=== PATIENT | female | born 1965 | race Caucasian/White ===

== ENCOUNTER 2017-08-19 00:56 | Emergency (ER) | payer OTHER, SELFPAY ==
[2017-08-19 00:56] VITALS: BP 136/104; PULSE 95; RESP 20; TEMP 36.7; O2SAT 95; BMI 53.2
--- NOTE | 2017-08-19 01:32 | US_ITS ---
STUDY: ABDOMINAL ULTRASOUND - RIGHT UPPER QUADRANT REASON FOR VISIT: Female, 52 years old. Upper abdominal pain especially after meals TECHNIQUE: Ultrasound evaluation of the right upper quadrant was performed with real-time and static turner-scale imaging. TECHNICAL QUALITY: Adequate. COMPARISON: None. FINDINGS: Liver: The liver measures 16.6 cm. There is normal echogenicity of the liver. The bile ducts are within normal limits. There is hepatic color flow. The direction of portal flow is hepatopetal. There is no demonstrated mass lesion. Gallbladder: Normal distended gallbladder. The gallbladder wall measures 3 mm. There is a negative sonographic Ojeda's sign. There is no pericholecystic fluid. There is a 1.8 cm gallstone and a small 6 mm polyp Common Bile Duct (C.B.D.): The common bile duct measures 5 mm. Pancreas: Normal size of the head, body and tail of the pancreas. There is normal echogenicity of the pancreas. There is no demonstrated pancreatic mass or cyst. Right Kidney: Normal size of the right kidney. The right kidney measures 10.2 x 4.8 x 4.8 cm. Normal renal cortex. The right cortex measures 1.5 cm. There is no demonstrated renal mass or cyst. There is no right hydronephrosis. US/Gallbladder IMPRESSION: A 1.8 cm gallstone and a 6 mm polyp in the gallbladder Electronically Signed: Abimael Rodrigues, at 3:17 EDT Tel , Service support ,
[2017-08-19] MEDS: Acetaminophen 500 MG Tablet 1000 MG PO (01:55)
[2017-08-19] MEDS: 0.9% Normal Saline 1,000 ML 125 ML IV (01:55)
[2017-08-19 02:05] LABS: Mucous, Urine 0 SEEN /hpf (<or=2+); Red Blood Cells-Urine 0 SEEN /hpf (0-5); White Blood Cells 0 SEEN /hpf (0-5)
[2017-08-19 02:10] LABS: Color, Urine Yellow (Yellow); Glucose, Dipstick Normal (Normal); Ketone-Dipstick 5 mg/dl (Negative); Leukocyte Esterase-Dipstick 25 /ul (Negative); Nitrite-Dipstick Negative (Negative); Occult Blood-Urine 10 /ul (Negative); Protein-Dipstick 30 mg/dl (Negative); Specific Gravity, Urine 1.025 (1.002-1.030); Urine Clarity Clear (Clear); Urine Urobilinogen 1 mg/dl (Normal)
[2017-08-19 02:11] LABS: Absolute Lymphocyte Count 2.19 X10^3/ul (0.83-4.51); Absolute Neutrophil Count 6.4 X10^3/uL (2.0-7.7); Basophil# 0.02 X10^3/uL; Basophil% 0.2 % (0-1); Eosinophil# 0.11 X10^3/uL; Eosinophils% 1.2 % (0-5); Hemoglobin 11.6 g/dl (12.0-15.0); Lymphocyte # 2.19 X10^3/ul (4.0); Lymphocyte % 23.8 % (19-41); Mean Corp Hgb Conc 32.2 g/gl (32-36); Mean Corpuscular Hgb 28.9 pg (27.0-32.0); Mean Corpuscular Volume 89.8 fL (81-99); Mean Platelet Vol. 11.1 fl (6.2-12.0); Monocyte# 0.44 X10^3/uL; Monocyte% 4.8 % (0-10); Neutrophil # 6.42 X10^3/uL (2.7-7.7); Neutrophil % 69.8 % (47-70); Platelet Count 274 K/mm3 (150-450); RBC Distribution Width CV 13.4 % (11.6-14.6); RBC Distribution Width SD 43.4 fl (35.1-43.9); Red Blood Count 4.01 M/mm3 (4.2-5.4); White Blood Count 9.2 K/mm3 (4.4-11.0)
[2017-08-19 02:17] LABS: Urine Bilirubin Dipstick 1 mg/dL (Negative)
[2017-08-19 02:22] LABS: Bacteria 2+ /hpf (None Seen); Squamous Epithelial Cells - UA 0-5 SEEN /hpf (5-10)
[2017-08-19 02:23] LABS: POSITIVE COUNT NO; POSITIVE DIFFERENTIAL NO; POSITIVE MORPHOLOGY NO
[2017-08-19 02:24] LABS: ALB/GLOB Ratio 0.8 RATIO (0.9-2.4); AST(SGOT) 20 U/L (15-37); Alanine Aminotransfer ALT/SGPT 38 U/L (13-56); Albumin, Serum 3.4 g/dL (3.2-5.0); Alkaline Phosphatase 140 U/L (45-117); Anion Gap 8 (5-15); BUN 14 mg/dL (7-18); BUN/Creat Ratio 18.3 RATIO (10-20); Calcium,Total 9.4 mg/dL (8.5-10.1); Chloride 105 mmol/L (98-107); Creatinine, Serum 0.77 mg/dL (0.55-1.02); EST Glomerular Filtration Rate 84 mL/min (>60); Est Glom Filt Rate - Afr Amer 101 mL/min (>60); Estimated Creatinine Clearance 72.12 ml/min; Globulin 4.2 g/dL (2.2-4.2); Glucose 107 mg/dL (74-106); Lipase 143 U/L (73-393); Potassium 3.6 mmol/L (3.5-5.1); Protein, Total 7.6 g/dL (6.4-8.2); Sodium Level 140 mmol/L (136-145)
[2017-08-19 03:51] VITALS: PULSE 88; RESP 18; O2SAT 98
[2017-08-19] MEDS: oxyCODONE 5 MG Tablet PO (03:56)
[2017-08-19] MEDS: Ondansetron ODT 4 MG Tablet PO (03:57)
--- NOTE | 2017-08-19 04:42 | ED.DCSUM_ITS ---
- ER Visit Summary Date of Service: 08/19/17 Chief Complaint: Abdominal pain History of Present Illness: The patient is a 52 F with bilateral upper quadrant abdominal pain radiating to the back. Worse this evening after eating a cheeseburger. No other associated symptoms. No history of this. Physical Examination: Vitals unremarkable. Upper abdomen slightly tender to palpation. Negative Ojeda sign. No guarding or rebound. CVAs nontender. Skin appears normal without jaundice. Test Results: White count 11.6. CMP unremarkable except for an alk phos of 140. Lipase normal. Urinalysis unremarkable. Ultrasound shows a 1.8 cm gallstone with a 6 mm polyp. No sonographic Ojeda sign. No pericholecystic fluid. No thickening or dilation. Emergency Department Course and Treatment: Patient presents with biliary colic. She was treated initially with Tylenol. She requested something more for pain and was treated with oxycodone. This seemed to keep her pain under control. She also had Zofran and this helped. Patient would like to follow-up as an outpatient. I believe she will need surgery for this. A family member has seen . Dr. Warner is on-call. I will get her the number for both of these physicians and she should call in the morning. She will receive a short course of Percocet and Zofran. Her prescription database report was unremarkable. Return for any new or worsening symptoms she could develop comp occasions like pancreatitis or an infection and require hospitalization. Treatment Plan: As above Disposition: Discharged Impression: 1. Biliary Colic This note was generated with [employer] dictation software. It may contain incorrect words, spelling, and punctuation that were not noted in review of the chart prior to signing ED Disposition - Plan for ED Patient: Chief Complaint: Abd Pain Referrals: Care Physician,No Primary [Primary Care Provider] -
--- NOTE | 2017-08-19 04:45 | ED.DEP ---
ED Disposition - Plan for ED Patient: Chief Complaint: Abd Pain Instructions: Discharge Instructions for Gallstones Prescriptions: Oxycodone HCl/Acetaminophen [Percocet 5/325] 1 tab PO Q6H PRN PRN 3 Days #12 tab PRN Reason: Pain Ondansetron [Zofran Odt] 4 mg PO Q8H PRN PRN #10 tab PRN Reason: Nausea Referrals: Earnest Galan MD [STAFF PHYSICIAN] - Ute Warner MD [STAFF PHYSICIAN] -
[2017-08-19 05:03] VITALS: BP 128/56; PULSE 69; RESP 16; O2SAT 98
== END 2017-08-19 05:03 | disposition home or self-care (01) ==
PROVIDERS: Emergency Provider Emergency Medicine
DX: K80.70 Calculus of gallbladder and bile duct without cholecystitis without obstruction (principal); K82.4 Cholesterolosis of gallbladder
CPT/HCPCS: 76705; 80053; 81001; 83690; 85025; 96360; 96361; 99284; J7030; J7050; A4216

== ENCOUNTER 2017-10-07 05:40 | Day surgery (SDC) | payer OTHER, SELFPAY ==
[2017-10-07] VITALS (10 sets, daily range): BP systolic 114–154; BP diastolic 60–104; PULSE 40–74; RESP 16–18; TEMP 36.2–37.1; O2SAT 95–100; BMI 50.4
--- NOTE | 2017-10-07 05:54 | EKG12_ITS ---
Test Reason : PRE-OP Blood Pressure : / mmHG Vent. Rate : 073 BPM Atrial Rate : 073 BPM P-R Int : 158 ms QRS Dur : 092 ms QT Int : 398 ms P-R-T Axes : 030 050 038 degrees QTc Int : 438 ms Normal sinus rhythm Normal ECG No previous ECGs available Confirmed by MADDI ROSARIO, JAE ([id number]), food expeditor LAURA GALVEZ ([id number]) on 10/08/2017 9:47:35 AM Referred By: Earnest Galan Confirmed By:JAE LINDA MD
[2017-10-07 06:08] LABS: Internal QC Validated? YES +Cl - CLEAR BKGD; Pregnancy, Urine Negative Negative
[2017-10-07] MEDS: Cefazolin 2 GM in 0.9% Normal Saline 100 ML IV (07:10)
--- NOTE | 2017-10-07 07:15 | RAD_ITS ---
STUDY: INTRAOPERATIVE CHOLANGIOGRAM. REASON FOR EXAM: Female, 52 years old. Laparoscopic cholecystectomy. FLUOROSCOPY TIME (if supplied): (0:12) minutes/seconds TECHNIQUE: And intraoperative cholangiogram was performed by the surgeon. Imaging was submitted. COMPARISON: None. FINDINGS: Contrast was injected through the cystic duct. The visualized intrahepatic ducts are unremarkable. The common bile duct is not dilated. No intraluminal filling defect is seen. There is free flow of contrast into the duodenum. RAD/Cholangiogram/ O R,Initial IMPRESSION: Unremarkable intraoperative glandular. Electronically Signed: Darryl Yepez MD at 10:14 EDT Tel [phone], Service support ,
--- NOTE | 2017-10-07 07:15 | GALL_PTH ---
PATIENT: KIRSTIN VAZQUEZ LOC: [facility] U#:[id number] AGE/SX: 52/F ROOM: RE10/07/[address]: Dr. Earnest Galan MD : [id number] BED: DIS: 10/07/2017 SPEC #: [id number] RECD: 10/08/17 07:16 STATUS: BO WOODROW #: [id number] KIMMY: 10/07/17 07:[address]: Earnest Galan DEPT: SURGICAL PATHOLOGY RECD BY: Zander Jordan ENTERED: 10/08/17 10:59 SP TYPE: BEBETO LOPEZ DR: No Primary Care Phys Tissues: Gallbladder, NOS Procedures: Surgery Specimen Level III HEADER OPERATION: Laparoscopic, nicole with IOC PRE-OP DIAGNOSIS: Cholelithiasis TISSUE SUBMITTED: Gallbladder MICROSCOPIC DIAGNOSIS Gallbladder: Chronic cholecystitis, cholelithiasis and cholesterolosis. Pericystic benign lymph node with reactive changes. SJ:maribell 10/09/17 MICROSCOPIC DESCRIPTION Slides are reviewed. GROSS DESCRIPTION Received is one container labeled with the patient's name and designated gallbladder. The specimen consists of a gallbladder measuring 9 cm in length and up to 3.5 cm in diameter. The external surface is pink-khoury, smooth and glistening for the most part. Focally it is granular, hemorrhagic and contains cautery artifact. The gallbladder contains green-yellow mucoid bile and 1 greenish mulberry stone measuring 0.9 cm x 0.9 x 0.8 cm. The mucosa is bile-stained and without any mass lesions. The gallbladder wall measures up to 0.4 cm in thickness. Focally, there is increased amount of subserosa and fat. The mucosa also shows several yellowish streaks consistent with cholesterolosis. Network Support Administrator sections from the gallbladder and the cystic duct are submitted in one cassette. / SJ:sp 10/07/17 TC:3 CPT: 83312
[2017-10-07] MEDS: Bupivacaine Mpf 0.5% 30 ML VIAL (07:38)
--- NOTE | 2017-10-07 08:26 | PCM.OPRPT ---
Report of Operation Date of Procedure: 10/07/17 Pre-Operative Diagnosis: BILIARY COLIC Post-Operative Diagnosis: BILIARY COLIC, NORMAL IOC Surgery/Procedure Performed:: LAPAROSCOPIC CHOLECYSTECTOMY WITH INTRAOPERATIVE CHOLANGIOGRAM lead android developer: Tyrone Mosquera Type of Anesthesia:: General Anesthesiologist: Micheal Norris - ASA3 Specimen's removed: Gallbladder Estimated Blood Loss (mL): minimal Fluids Replaced: 1000 Description of Procedure: The patient was brought to the operating suite. Sign in was performed verifying patient, site, position, SCIP antibiotic prophylaxis- 3 gm of Ancef and DVT prophylaxis with SCDs. Following induction of general anesthetic. The patients abdomen was prepped and draped in the usual fashion. Timeout was performed verifying patient, site, position. Local anesthetic was injected below the umbilicus. Incision made and dissection carried down to the umbilical root fascia. 2 stay sutures were placed. Incision made in the fascia, the peritoneum entered under direct visualization. A 10 mm Raymond trocar was inserted and secured with the stay sutures. Pneumoperitoneum to 15 mmHg was insufflated. Visual inspection revealed demonstrated liver, otherwise normal visualized abdominal structures. 3 right upper quadrant 5 ports were placed in the standard position. The gallbladder was grasped retracted upward and outward. Dissection was carried out in Calots triangle. When a critical view of the neck of the gallbladder funneling of the cystic duct with no signs of aberrant ductal structures were seen, a clip was placed on the neck of the gallbladder cystic duct junction. A partial ductotomy was made. A Cholangiocath was inserted into the duct and secured with a clip. Intraoperative cholangiogram was performed demonstrating filling of the cystic duct filling the common bile duct and emptying into the duodenum without signs of obstruction area and the clip and catheter were removed. 2 clips placed on the cystic duct and the cystic duct divided. Dissection was continued until the cystic artery was clearly dissected and identified. The artery was then doubly clipped proximally singly clipped distally and divided. The gallbladder was then dissected free from the gallbladder fossa using electrocautery. The gallbladder was placed in an Endobag and removed through the umbilical port site. An 0 PDS [id number] suture was placed around the umbilical port site defect. Pneumoperitoneum was reestablished. The gallbladder fossa was checked for hemostasis. With good hemostasis, the area was irrigated and aspirated to clear. 5mm ports were removed under direct visualization with no signs of bleeding. Pneumoperitoneum was released. The Raymond trocar was removed. The umbilical fascial suture was secured area did skin was closed with interrupted 4-0 Monocryl subcuticular sutures. Steri-Strips and bandages were applied. The patient was brought to recovery room in stable condition. - Admit VTE Documentation VTE Present on Admission: No VTE Mechan Device Prophylaxis: SCD's VTE Pharm Prophylaxis ordered?: No
--- NOTE | 2017-10-07 08:30 | OP.PCM_ITS ---
Report of Operation Date of Procedure: 10/07/17 Pre-Operative Diagnosis: BILIARY COLIC Post-Operative Diagnosis: BILIARY COLIC, NORMAL IOC Surgery/Procedure Performed:: LAPAROSCOPIC CHOLECYSTECTOMY WITH INTRAOPERATIVE CHOLANGIOGRAM ccna: Tyrone Mosquera Type of Anesthesia:: General Anesthesiologist: Michael Norris - ASA3 Specimen's removed: Gallbladder Estimated Blood Loss (mL): minimal Fluids Replaced: 1000 Description of Procedure: The patient was brought to the operating suite. Sign in was performed verifying patient, site, position, SCIP antibiotic prophylaxis- 3 gm of Ancef and DVT prophylaxis with SCDs. Following induction of general anesthetic. The patient?s abdomen was prepped and draped in the usual fashion. Timeout was performed verifying patient, site , position. Local anesthetic was injected below the umbilicus. Incision made and dissection carried down to the umbilical root fascia. 2 stay sutures were placed. Incision made in the fascia, the peritoneum entered under direct visualization. A 10 mm Raymond trocar was inserted and secured with the stay sutures. Pneumoperitoneum to 15 mmHg was insufflated. Visual inspection revealed demonstrated liver, otherwise normal visualized abdominal structures. 3 right upper quadrant 5 ports were placed in the standard position. The gallbladder was grasped retracted upward and outward. Dissection was carried out in Calot?s triangle. When a critical view of the neck of the gallbladder funneling of the cystic duct with no signs of aberrant ductal structures were seen, a clip was placed on the neck of the gallbladder cystic duct junction. A partial ductotomy was made. A Cholangiocath was inserted into the duct and secured with a clip. Intraoperative cholangiogram was performed demonstrating filling of the cystic duct filling the common bile duct and emptying into the duodenum without signs of obstruction area and the clip and catheter were removed. 2 clips placed on the cystic duct and the cystic duct divided. Dissection was continued until the cystic artery was clearly dissected and identified. The artery was then doubly clipped proximally singly clipped distally and divided. The gallbladder was then dissected free from the gallbladder fossa using electrocautery. The gallbladder was placed in an Endobag and removed through the umbilical port site. An 0 PDS [id number] suture was placed around the umbilical port site defect. Pneumoperitoneum was reestablished. The gallbladder fossa was checked for hemostasis. With good hemostasis, the area was irrigated and aspirated to clear. 5mm ports were removed under direct visualization with no signs of bleeding. Pneumoperitoneum was released. The Raymond trocar was removed. The umbilical fascial suture was secured area did skin was closed with interrupted 4 -0 Monocryl subcuticular sutures. Steri-Strips and bandages were applied. The patient was brought to recovery room in stable condition. - Admit VTE Documentation VTE Present on Admission: No VTE Mechan Device Prophylaxis: SCD's VTE Pharm Prophylaxis ordered?: No
--- NOTE | 2017-10-07 08:32 | DCINST_ITS ---
Discharge Diet: Light diet - advance as tolerated Discharge Activity: May Not Drive - for 2-3 days or while taking narcotic pain medications., - - Do not drive, work heavy equipment or sign legal documents for 24 hours. May shower in (days): 1 - with the bandage in place. Additional Activity Instructions:: Pain medication may cause nausea. You should typically eat light foods as you take your pain medications. Pain medication may also cause constipation. If this is a problem for you, please discuss with your doctor. Call your doctor if your incision/area has: Continuous Slow Oozing, Sudden Increased Bleeding, Increased Pain/ Swelling, Increased Redness, Foul Smelling Discharge Call your doctor if you observe: Fever of 101 or Higher Suture Line Care: Avoid Pulling/Pushing, Avoid Pinching/Bending Additional Dressing/Incision Instructions:: Leave operative bandaids on for 2 days. When you remove dressing, leave Steri-Strips on until your follow-up appointment, or until the Steri-Strips fall off on their own. Allergies/Adverse Reactions: Allergies acetaminophen [From Vicodin] Adverse Reaction (Verified 09/30/17 11:09) Vomiting hydrocodone [From Vicodin] Adverse Reaction (Verified 09/30/17 11:09) Vomiting prednisone Adverse Reaction (Verified 09/30/17 11:09) Upset Stomach Medications to take at Discharge RX: Ondansetron [Zofran Odt] 4 mg PO Q8H PRN PRN #10 tab 08/19/17 RX: Oxycodone HCl/Acetaminophen [Percocet 5-325] 1 tab PO Q6H PRN PRN 3 Days # 12 tab 10/07/17 The following prescriptions were given: RX: Oxycodone HCl/Acetaminophen [Percocet 5-325] 1 tab PO Q6H PRN PRN 3 Days # 12 tab PRN Reason: Pain Primary Care Physician: Care Physician,No Primary [Primary Care Provider] - Please Follow Up With: Earnest Galan MD - Please call [phone] to schedule an appointment. When: 7 days after your surgery
[2017-10-07] MEDS: proCHLORPERazine 10 MG/2 ML Vial 5 MG IV (10:20)
--- NOTE | 2017-10-07 11:03 | SUR.PHASEII ---
VERY SLEEPY BUT CONTINUES TO C/O NAUSEA, HAS TAKEN SIPS OF WATER WITH ENCOURAGEMENT. MEDICATED WITH COMPAZINE IV PER ORDERS. AND PARENTS AT BEDSIDE.
[2017-10-07] MEDS: oxyCODONE 5 MG Tablet PO (11:34)
[2017-10-07] MEDS: Acetaminophen 325 MG Tablet PO (11:34)
== END 2017-10-07 12:21 | disposition home or self-care (01) ==
LOC: SDC 05:41 → AC 05:42
PROVIDERS: Visit Provider Surgery
PROC: (CPT 47610; principal; 2017-10-07 06:55)
DX: K80.10 Calculus of gallbladder with chronic cholecystitis without obstruction (principal); D64.9 Anemia, unspecified; K21.9 Gastro-esophageal reflux disease without esophagitis; E66.9 Obesity, unspecified; Z68.45 Body mass index [BMI] 70 or greater, adult
CPT/HCPCS: 47563; 74300; 76000; 81025; 88304; 93005; J7120; J2405